=== PATIENT | male | born 1955 | race Caucasian/White ===

== ENCOUNTER → 2017-07-12 | Outpatient (CLI) | payer OTHER ==
[2016-05-05 21:21] VITALS: BP 133/79
[2017-07-12 17:03] LABS: CALCIUM 8.8 mg/dL (8.5-10.1); GFR 75.2; MAGNESIUM 2.1 mg/dL (1.8-2.4)
== END | disposition home or self-care (01) ==
LOC: LAB 16:28
PROVIDERS: ATTEND Nurse Practitioner
DX: R00.2 Palpitations (principal)
CPT/HCPCS: 36415; 80048; 83735; 84443

== ENCOUNTER → 2021-05-13 | Outpatient (CLI) | payer MEDICARE, OTHER ==
[2016-05-05 21:21] VITALS: BP 133/79
--- NOTE | 2021-05-13 18:05 | RAD ---
EXAMINATION: US ABDOMEN OR LOWER BACK LIMITED 05/13/2021 9:14 AM INDICATION: Elevated liver enzymes TECHNIQUE: Plaza scale and color Doppler ultrasound images of the right upper quadrant were obtained. COMPARISON: None. FINDINGS: Liver: The liver is normal in size measuring 16 cm in length. There is diffusely increased hepatic ec hogenicity. No focal liver lesion. Gallbladder: The gallbladder is normal in caliber. No cholelithiasis or sludge. The gallbladder wa ll is normal in thickness measuring 2 mm. Bile ducts: The common bile duct is normal measuring 4 mm. No intrahepatic biliary duct dilatation. Right kidney: The right kidney measures 10.5 x 4.8 x 4.5 cm. Normal cortical thickness and echogenic ity. No hydronephrosis. Other: Abdominal aorta, IVC, and pancreas are obscured by bowel gas. IMPRESSION: 1. Hepatic steatosis. 2. Midline structures are poorly visualized due to bowel gas. Electronically signed by: Krystle Patel MD (05/13/2021 6:03 PM) [id number]
== END ==
LOC: US 09:08
PROVIDERS: ATTEND Family Medicine
DX: K76.0 Fatty (change of) liver, not elsewhere classified (principal); R74.8 Abnormal levels of other serum enzymes
CPT/HCPCS: 76705